=== PATIENT | male | born 1985 | race Caucasian/White ===

== ENCOUNTER 2021-04-06 11:53 | Emergency (ER) | payer OTHER ==
[~2021-04-06] VITALS: Ht 162.6 cm; Wt 81.6 kg
[2021-04-06 11:53] VITALS: BP 155/86
--- NOTE | 2021-04-06 11:53 | NUR ---
Juaquin CASTILLO via gurney to bed 09.
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
[2021-04-06] MEDS ORDERED: KETOROLAC 60 MG/2 ML VIAL IM ONE (12:05)
--- NOTE | 2021-04-06 12:28 | NUR ---
Patient transported to [facility] via gurney.
--- NOTE | 2021-04-06 12:37 | NUR ---
Patient returned from [facility] via [facility].
--- NOTE | 2021-04-06 12:50 | NUR ---
Patient states positive relief after Toradol IM. Rates pain 2/10.
--- NOTE | 2021-04-06 13:50 | NUR ---
Patient resting in position of comfort. C-collar remains in place. Bed locked in lowest position, side rails x 1, call light in reach.
--- NOTE | 2021-04-06 15:30 | NUR ---
Patient resting in position of comfort. Rates pain 3. C-collar remains in place. Bed locked in lowest position, side rails x 1, call light in reach.
[2021-04-06] MEDS ORDERED: CYCL-711 PO (16:50)
[2021-04-06] MEDS ORDERED: NAPR500E1 PO (16:50)
[2021-04-06 16:58] VITALS: BP 131/84
--- NOTE | 2021-04-06 16:58 | NUR ---
Patient discharged with v/s stable. Written and verbal after care instructions given and explained. Patient alert, oriented and verbalized understanding of instructions. Ambulatory with steady gait. All questions addressed prior to discharge. ID band removed. Patient advised to follow up with PMD. Rx of NAPROXEN, FLEXERIL given. Patient educated on indication of medication including possible reaction and side effects. Opportunity to ask questions provided and answered.
== END 2021-04-06 16:58 | disposition home or self-care (01) ==
LOC: MED 11:53
DX: M54.2 Cervicalgia (principal); M54.5 Low back pain; M79.10 Myalgia, unspecified site; J45.909 Unspecified asthma, uncomplicated; Z79.899 Other long term (current) drug therapy
CPT/HCPCS: 72040; 72125; 96372; 99284; J1885